=== PATIENT | female | born 1970 | race Caucasian/White ===

== ENCOUNTER 2018-07-18 16:35 | Emergency (ER) | payer OTHER, SELFPAY ==
[2018-07-18 17:25] LABS: #Basophils 0.1 thou/uL (0.0-0.2); #Eosinphils 0.2 thou/uL (0.0-0.7); #Lymphocytes 3.5 thou/uL (1.20-3.40); #Monocytes 0.6 thou/uL (0.11-0.59); #Neutrophils 4.9 thou/uL (1.40-6.50); %Basophils 1.1 % (0.0-1.0); %Eosinophils 1.7 % (0.0-10.0); %Lymphocytes 37.5 % (21.0-51.0); %Monocytes 6.8 % (0.0-10.0); %Neutrophils 52.9 % (42.0-75.0); Hemoglobin 14.6 g/dL (12.0-16.0); Mean Corpuscular Hemoglobin 30.2 pg (27.0-31.0); Mean Platelet Volume 7.9 fL (7.4-10.4); Platelet Count 228 thou/uL (130-400); RBC Distribution Width 11.6 % (11.5-14.5); Red Blood Cell (RBC) Count 4.83 mill/uL (4.20-5.40); White Blood Cell (WBC) Count 9.2 thou/uL (4.8-10.8)
[2018-07-18 17:37] LABS: ALT (SGPT) 17 U/L (8-55); AST (SGOT) 14 U/L (5-34); Albumin 4.4 g/dL (3.5-5.0); Alkaline Phosphatase 41 U/L (40-150); Anion Gap 14 mmol/L (10-20); BUN (Urea Nitrogen) 7 mg/dL (7.0-18.7); Bilirubin, Total 0.2 mg/dL (0.2-1.2); Calc. Creatinine Clearance 0 mL/min (70-130); Calcium 9.3 mg/dL (7.8-10.44); Carbon Dioxide 24 mmol/L (22-29); Chloride 108 mmol/L (98-107); Estimated GFR-MDRD 78; Globulin 2.4 g/dL (2.4-3.5); Glucose 89 mg/dL (70-105); Protein, Total 6.8 g/dL (6.0-8.3); Sodium 142 mmol/L (136-145)
--- NOTE | 2018-07-18 18:02 | CT ---
CT abdomen and pelvis noncontrast HISTORY: Flank pain. FINDINGS: Each renal collecting system, ureter, and urinary bladder decompressed without stone appare nt. Lack of contrast limits evaluation for other abnormalities. Particulate matter distends the stomach. No evidence of bowel obstruction. At the cecal base, indicating intraluminal oval 0.5 cm calcification is present. The appendix is not appear inflamed. Follicles arise from the ovaries. IMPRESSION: No CT evidence of urinary tract obstruction or calcification. Incidental note of a 5 mm appendicolith at the base of the appendix. No acute inflammation is appare nt.
== END 2018-07-18 18:25 | disposition home or self-care (01) ==
LOC: SCSER 16:35
DX: K64.4 Residual hemorrhoidal skin tags (principal); F41.9 Anxiety disorder, unspecified; F32.9 Major depressive disorder, single episode, unspecified; F17.210 Nicotine dependence, cigarettes, uncomplicated; Z79.899 Other long term (current) drug therapy
CPT/HCPCS: 36415; 74176; 80053; 82274; 85025

== ENCOUNTER 2018-08-14 14:56 | Outpatient (CLI) | payer OTHER ==
[2018-08-14 15:24] LABS: #Basophils 0.1 thou/uL (0.0-0.2); #Eosinphils 0.3 thou/uL (0.0-0.7); #Lymphocytes 3.2 thou/uL (1.20-3.40); #Monocytes 0.5 thou/uL (0.11-0.59); #Neutrophils 4.6 thou/uL (1.40-6.50); %Eosinophils 3.2 % (0.0-10.0); %Lymphocytes 36.5 % (21.0-51.0); %Monocytes 6.3 % (0.0-10.0); Hemoglobin 14.7 g/dL (12.0-16.0); Mean Corpuscular HGB CONC 35.3 g/dL (32.0-36.0); Mean Corpuscular Hemoglobin 31.8 pg (27.0-31.0); Mean Corpuscular Volume 90.1 fL (78.0-98.0); Mean Platelet Volume 8.1 fL (7.4-10.4); Platelet Count 222 thou/uL (130-400); RBC Distribution Width 11.8 % (11.5-14.5); Red Blood Cell (RBC) Count 4.63 mill/uL (4.20-5.40); White Blood Cell (WBC) Count 8.6 thou/uL (4.8-10.8)
[2018-08-14 15:30] LABS: Bilirubin Negative (Negative); Blood, Urine Negative (Negative); Clarity Clear (Clear); Glucose, Urine (Dipstick) Negative (Negative); Leukocyte Negative (Negative); Nitrite Negative (Negative); Protein, Urine (Dipstick) Negative (Neg-Trace); Urobilinogen 0.2 mg/dL (0.2-1.0)
[2018-08-14 15:37] LABS: ALT (SGPT) 19 U/L (8-55); AST (SGOT) 15 U/L (5-34); Albumin 4.5 g/dL (3.5-5.0); Alkaline Phosphatase 44 U/L (40-150); Anion Gap 12 mmol/L (10-20); BUN (Urea Nitrogen) 10 mg/dL (7.0-18.7); Bilirubin, Total 0.5 mg/dL (0.2-1.2); Calc. Creatinine Clearance 0 mL/min (70-130); Calcium 9.8 mg/dL (7.8-10.44); Carbon Dioxide 27 mmol/L (22-29); Cardiac Risk 3.8 (Less than 4.5); Chloride 103 mmol/L (98-107); Cholesterol 198 mg/dl (< 200 Desired); Estimated GFR-MDRD 79; Globulin 2.5 g/dL (2.4-3.5); Glucose 89 mg/dL (70-105); HDL Cholesterol 52 mg/dL (>60 Neg Risk); LDL Cholesterol, Calculated 128 mg/dL; Sodium 138 mmol/L (136-145); Triglycerides 89 mg/dL (Less than 150)
--- NOTE | 2018-08-14 15:51 | ULT ---
THYROID ULTRASOUND: HISTORY: Goiter. FINDINGS: The right lobe measures 1.9 x 4.7 x 1.8 cm, and the left lobe measures 4.6 x 1.4 x 1.6 cm. The estim ation measures 4 mm in thickness. There are cysts in the inferior pole of the right lobe, measuring 3 and 6 mm respectively. There is a 1.3 x 0.5 cm hypoechoic, solid appearing nodule in the isthmus, closer to the right lobe. In the mid portions of the right lobe, there are two solid appearing, hypoechoic solid nodules with s mooth margins, which measure 2 x 1.1 x 0.6 mm medially and 2.1 x 1.2 x 0.9 mm laterally. Both these nodules have total points of 4 and correspond to a TI-RADS level of 4. Since both these nodules are greater than 1.5 cm, ultrasound guided biopsy of both these nodules should be performed. IMPRESSION: TI-RADS category 4-Moderately suspicious. Fine needle aspiration of the two dominant solid appearing nodules in the right lobe is recommended. POS: HUNTER
[2018-08-14 15:58] LABS: Bacteria/HPF Rare-Few HPF (None Seen); RBC/HPF 0-3 HPF (0-3); Squamous Epithelial 0-3 HPF (0-3); WBC/HPF 0-3 HPF (0-3)
== END 2018-08-14 14:57 | disposition home or self-care (01) ==
LOC: SCSULT 14:56
PROVIDERS: ATTEND Family Medicine
DX: E04.2 Nontoxic multinodular goiter (principal)
CPT/HCPCS: 36415; 76536; 80053; 80061; 81001; 84443; 85025

== ENCOUNTER 2018-08-24 09:34 | Outpatient (CLI) | payer OTHER ==
--- NOTE | 2018-08-24 11:26 | MMO ---
Bilateral MAMMO Bilat Screen [facility]. CLINICAL HISTORY: Patient is 48 years old and is seen for screening. The patient has the following family history of breast cancer: father. The patient has no personal history of cancer. VIEWS: The views performed were: bilateral craniocaudal and bilateral mediolateral oblique. This study has been interpreted with the assistance of computer-aided detection. MAMMOGRAM FINDINGS: The breasts are heterogeneously dense, which could obscure a lesion on mammography. There are no suspicious masses, suspicious calcifications, or new areas of architectural distortion. IMPRESSION: THERE IS NO MAMMOGRAPHIC EVIDENCE OF MALIGNANCY. A ROUTINE FOLLOW-UP MAMMOGRAM IN 1 YEAR IS RECOMMENDED. ACR BI-RADS Category 1 - Negative MAMMOGRAPHY NOTE: 1. A negative mammogram report should not delay a biopsy if a dominant of clinically suspicious mass is present. 2. Approximately 10% to 15% of breast cancers are not detected by mammography. 3. Adenosis and dense breasts may obscure an underlying neoplasm.
== END 2018-08-24 09:35 | disposition home or self-care (01) ==
LOC: SCSMAMMO 09:34
PROVIDERS: ATTEND Family Medicine
DX: Z12.31 Encounter for screening mammogram for malignant neoplasm of breast (principal)
CPT/HCPCS: 77067

== ENCOUNTER 2020-01-10 08:58 | Outpatient (CLI) | payer OTHER ==
--- NOTE | 2020-01-10 10:22 | ULT ---
PELVIC ULTRASOUND: Date: 01/10/2020 Transabdominal and endovaginal ultrasound of pelvis performed. HISTORY: There is a history of hysterectomy. Pap smear showed endometrial cells. FINDINGS: The cervix remains and endocervical canal is identified. Portions of the endometrium may be present. Small nabothian cysts are noted. Both ovaries are identified and appear unremarkable. Small left ovarian cyst measures approximately 1 .0 cm, consistent with small follicular cysts. Color Doppler and spectral analysis demonstrates blood flow to both ovaries. IMPRESSION: 1. Evidence of partial hysterectomy. The cervix remains and endocervical canal is noted as discussed above. 2. Ovaries appear unremarkable. POS: AGW
== END 2020-01-10 08:59 | disposition home or self-care (01) ==
LOC: BICULT 08:58
PROVIDERS: ATTEND Family Medicine
DX: R87.619 Unspecified abnormal cytological findings in specimens from cervix uteri (principal); Z90.711 Acquired absence of uterus with remaining cervical stump
CPT/HCPCS: 76856

== ENCOUNTER 2020-01-27 08:50 | Outpatient (CLI) | payer OTHER ==
[2020-01-27 17:09] LABS: SARS-CoV-2 MS2 Positive; SARS-CoV-2 N Gene Negative; SARS-CoV-2 S Gene Negative; SARS-CoV-2 by NAA Not Detected (NotDetected); SARS-CoV-2 orf1ab Negative
== END 2020-01-27 08:51 | disposition home or self-care (01) ==
LOC: LABBT 08:50
PROVIDERS: ATTEND Family Medicine
DX: Z20.828 Contact with and (suspected) exposure to other viral communicable diseases (principal)
CPT/HCPCS: 87635; U0003

== ENCOUNTER 2020-01-31 12:04 | Day surgery (SDC) | payer OTHER ==
[2020-01-31] MEDS ORDERED: Lidocaine 1% PF 5 ML VIAL ONE (12:32)
[2020-01-31] MEDS ORDERED: Sodium Bicarbonate 2.5 MEQ/5 ML VIAL ONE (12:32)
--- NOTE | 2020-01-31 13:37 | ULT ---
Thyroid sonogram HISTORY: Thyroid nodules. COMPARISON: 08/14/2018. FINDINGS: On today's exam, the right thyroid lobe measures up to 4.7 cm with a heterogeneous echotext ure. Within the anterior central aspect, a circumscribed oval homogeneous hypoechoic nodule is 1.4 cm length by 0.7 cm width by 0.6 cm depth. Stable appearance. An area of heterogeneous echotexture at the posterior aspect of the right thyroid lobe is seen where a mass was described on the prior study. A measurable mass is not present on today's exam. At the inferior pole, a 0.7 cm cyst is measu red. Isthmus is 0.3 cm thickness. Left thyroid lobe measures up to 4.0 cm. Heterogeneous echotexture without mass. IMPRESSION : Lesion at the posterior aspect of the right thyroid lobe described on the prior study is much less co nspicuous on today's exam, without a measurable mass evident. Smaller nodules are stable. Given the stability and appearance on today's exam, current fine needle aspirate is not warranted. With patient's family history of thyroid neoplasm, periodic surveillance (1-2 years) may be warranted .
[2020-01-31 14:04] VITALS: BP 113/69; TEMP 98.4
== END 2020-01-31 13:30 | disposition home or self-care (01) ==
LOC: ULT 12:04
PROVIDERS: ATTEND Family Medicine
DX: E04.2 Nontoxic multinodular goiter (principal); F33.41 Major depressive disorder, recurrent, in partial remission; F41.9 Anxiety disorder, unspecified; N63.12 Unspecified lump in the right breast, upper inner quadrant; F17.210 Nicotine dependence, cigarettes, uncomplicated; G25.81 Restless legs syndrome; Z79.899 Other long term (current) drug therapy; Z88.6 Allergy status to analgesic agent
CPT/HCPCS: 76536

== ENCOUNTER 2020-02-01 14:01 | Outpatient (CLI) | payer OTHER ==
--- NOTE | 2020-02-01 15:14 | MMO ---
Bilateral MAMMO Bilat Diag [facility]. CLINICAL HISTORY: Patient is 49 years old and is seen for diagnostic exam. The patient has the following family history of breast cancer: father. The patient has no personal history of cancer. VIEWS: The views performed were: bilateral craniocaudal with tomosynthesis; bilateral mediolateral with tomosynthesis; bilateral mediolateral oblique with tomosynthesis; right mediolateral oblique spot compression with tomosynthesis; and right craniocaudal spot compression with tomosynthesis. FILMS COMPARED: The present examination has been compared to prior imaging studies performed at [facility] on 08/24/2018, and at [facility] on 02/01/2020. This study has been interpreted with the assistance of computer-aided detection. MAMMOGRAM FINDINGS: The breasts are heterogeneously dense, which could obscure a lesion on mammography. There is an asymmetry seen in the upper-outer region of the right breast. Ultrasound of palpable area was negative. There are no suspicious masses, suspicious calcifications, or new areas of architectural distortion. IMPRESSION: THERE IS NO MAMMOGRAPHIC EVIDENCE OF MALIGNANCY. A ROUTINE FOLLOW-UP MAMMOGRAM IN 1 YEAR IS RECOMMENDED. THE RESULTS OF THIS EXAM WERE SENT TO THE PATIENT. ACR BI-RADS Category 2 - Benign finding MAMMOGRAPHY NOTE: 1. A negative mammogram report should not delay a biopsy if a dominant of clinically suspicious mass is present. 2. Approximately 10% to 15% of breast cancers are not detected by mammography. 3. Adenosis and dense breasts may obscure an underlying neoplasm. Reported by: ORLANDO SMITH MD Electonically Signed: [id number]
--- NOTE | 2020-02-01 15:29 | ULT ---
RIGHT BREAST ULTRASOUND: 02/01/20 HISTORY: Palpable abnormality at approximately 12 o'clock position right breast 4 cm from the nipple. COMPARISON: Mammogram studies done today and 08/24/18. Somewhat asymmetric breast parenchymal change is seen in this areas on mammogram but no definable mas s. Subsequent ultrasound does not show any cystic or solid lesion. IMPRESSION: BIRADS 2: Benign Finding(s) Routine annual screening mammography (for women over age 40). POS: OFF
== END 2020-02-01 14:02 | disposition home or self-care (01) ==
LOC: BICMAMMO 14:01
PROVIDERS: ATTEND Family Medicine
DX: N63.10 Unspecified lump in the right breast, unspecified quadrant (principal)
CPT/HCPCS: 77066; G0279